=== PATIENT | female | born 1975 | race Caucasian/White ===

== ENCOUNTER 2025-03-19 20:44 | Emergency (ER) | payer OTHER ==
[~2025-03-19] VITALS: Ht 170.2 cm; Wt 64.0 kg
[2025-03-19 20:47] VITALS: O2SAT 98
[2025-03-19 20:50] VITALS: TEMP 36.7; O2SAT 100
[2025-03-19 21:12] LABS: CLARITY URINE CLEAR (CLEAR); COLOR URINE DARK YELLOW (YELLOW); GLUCOSE URINE NEGATIVE (NEGATIVE); KETONES URINE 3+ (NEGATIVE); LEUKOCYTE ESTERASE URINE NEGATIVE (NEGATIVE); NITRITE URINE NEGATIVE (NEGATIVE); OCCULT BLOOD URINE NEGATIVE (NEGATIVE); PH URINE 6.0 (4.5-8.0); PROTEIN URINE 1+ (NEGATIVE); SPECIFIC GRAVITY URINE 1.031 (1.005-1.030); UROBILINOGEN URINE 1.0 E.U./dL (0.2-1.0)
[2025-03-19 21:15] LABS: RBC URINE 0-2 /hpf (0-2); SQUAMOUS EPITHELIAL CELL URINE FEW /lpf (RARE/1+); WBC URINE 0-2 /hpf (0-2)
[2025-03-19 21:17] LABS: BACTERIA URINE 1+
[2025-03-19 21:57] LABS: BASOPHILS % 0.2 % (0.0-2.0); EOSINOPHILS % 0.0 % (0.0-5.0); HEMATOCRIT. 35.3 % (36.0-48.0); HEMOGLOBIN. 12.0 g/dL (12.0-16.0); LYMPHOCYTES % 7.6 % (20.0-50.0); MEAN PLATELET VOLUME 8.9 fl (7.4-10.4); MONOCYTES % 2.9 % (2.0-8.0); NEUTROPHILS % 89.3 % (40.0-76.0); PLATELET 234 x1000/uL (130-400); RED BLOOD CELL COUNT 3.54 mill/uL (4.2-5.4); RED CELL DISTRIBUTION WIDTH 13.3 % (11.6-14.6)
[2025-03-19 22:10] LABS: HCG SCREEN NEGATIVE
[2025-03-19 22:12] LABS: CREATININE 0.8 mg/dL (0.6-1.0); UREA NITROGEN BLOOD 13 mg/dL (9-23)
[2025-03-19 22:14] LABS: ASPARTATE AMINOTRANSFERASE 16 IU/L (<34); BILIRUBIN DIRECT 0.2 mg/dL (<=3.0); BILIRUBIN TOTAL 0.8 mg/dL (0.1-1.0); PROTEIN TOTAL 6.9 g/dL (6.0-8.3)
[2025-03-19] MEDS: ONDANSETRON HCL 4MG/2ML INJ IV ONE (22:28)
[2025-03-19] MEDS: SODIUM CHLORIDE 0.9% 1,000 ML IV ONE (22:28)
[2025-03-19 23:01] VITALS: BP 109/60; PULSE 57; RESP 18
[2025-03-19] MEDS: KETOROLAC 15MG/ML VIAL IV ONE (23:01)
[2025-03-19] MEDS ORDERED: ONDA4TAB50 MT (23:41)
[2025-03-19] MEDS ORDERED: TOPUD MT (23:41)
== END 2025-03-19 23:55 | disposition home or self-care (01) ==
LOC: ER 20:44
DX: K29.70 Gastritis, unspecified, without bleeding (principal); R11.2 Nausea with vomiting, unspecified; Z79.899 Other long term (current) drug therapy
CPT/HCPCS: 99284; 96374; 96361; 96375; 80076; 80048; 81003; 81025; 84703; 85025; 36415; 93005; J1885; J2405; J7030